=== PATIENT | female | born 1970 | race Caucasian/White ===

== ENCOUNTER 2017-09-30 08:35 | Inpatient (IN) | payer SELFPAY ==
[~2017-09-30] VITALS: Ht 165.1 cm; Wt 129.1 kg
[~2017-09-30 08:35] MED LIST: CYCL5TAB PO; IBUP800T23 PO; Z.0.NO CURRENT MEDS
[2017-09-30 08:39] VITALS: PULSE 51; RESP 24; TEMP 97.4; O2SAT 98
[2017-09-30] MEDS ORDERED: SODIUM CHLORIDE 0.9% FLUSH 10 ML FLUSH IV FLUSH PRN (09:00)
[2017-09-30] MEDS ORDERED: ONDANSETRON HCL 4 MG/2 ML VIAL IV PUSH ONE (09:00)
[2017-09-30] MEDS ORDERED: MORPHINE SULFATE 2 MG/ML INJ IV PUSH ONE (09:00)
[2017-09-30] MEDS ORDERED: SODIUM CHLOR 0.9% 1000 ML INJ 1,000 ML IV ONE (09:00)
[2017-09-30] MEDS ORDERED: [UNRECOGNIZED DRUG - OTHER] (09:13)
[2017-09-30 09:14] VITALS: BP 111/79; PULSE 50; RESP 16; O2SAT 100
[2017-09-30 09:15] VITALS: O2SAT 100
[2017-09-30] MEDS ORDERED: LORazepam 2 MG/ML VIAL IV PUSH ONE ×2 (09:15→13:45)
[2017-09-30 09:22] LABS: AUTOMATED NEUTROPHIL # 8.2 TH/MM3 (1.8-7.7); BASOPHIL # 0.2 TH/MM3 (0-0.2); BASOPHIL % 1.5 % (0.0-2.0); EOSINOPHIL # 0.1 TH/MM3 (0-0.4); EOSINOPHIL % 1.1 % (0.0-4.0); HEMATOCRIT 46.1 % (35.0-46.0); HEMOGLOBIN 15.7 GM/DL (11.6-15.3); LYMPH % 17.2 % (9.0-44.0); LYMPHOCYTE # 1.9 TH/MM3 (1.0-4.8); MEAN CELL VOLUME 95.3 FL (80.0-100.0); MEAN CORPUSCULAR HEMOGLOBIN 32.5 PG (27.0-34.0); MEAN CORPUSCULAR HGB CONC 34.2 % (32.0-36.0); MEAN PLATELET VOLUME 10.2 FL (7.0-11.0); MONO % 4.3 % (0.0-8.0); MONOCYTE # 0.5 TH/MM3 (0-0.9); NEUT % 75.9 % (16.0-70.0); PLATELET COUNT 258 TH/MM3 (150-450); RED BLOOD COUNT 4.83 MIL/MM3 (4.00-5.30); RED CELL DISTRIBUTION WIDTH 12.6 % (11.6-17.2); WHITE BLOOD COUNT 10.9 TH/MM3 (4.0-11.0)
--- NOTE | 2017-09-30 09:23 | PD ---
HPI Chief Complaint: GI Complaint Time Seen by Provider: 08:53 Travel History International Travel<30 days: No Contact w/Intl Traveler<30days: No Traveled to known affect area: No History of Present Illness HPI Ms. Valenzuela is a 47 year old female who presents with a 3 day history of nausea, vomiting, and abdominal pain. The patient initially attributed her symptoms to food poisoning but they have progressively gotten worse. She rates her pain 10/10 and describes it as constant ache with intermittent sharp pains. The pain is diffuse but more pronounced in the periumbilical area where there is "something sticking out." She has had this protrusion for at least two years but never had similar episodes in the past. She has been unable to tolerate PO intake due to nausea and vomiting. Vomit is non-bloody. She has not had a bowel movement in 3 days. Denies history of constipation. She has a history of section 25 years ago. Denies any lightheadedness, dizziness, weakness, shortness of breath. Modifying Factors: None Associated Signs & Symptoms: Periumbilical abdominal pain, nausea and vomiting for 3 days, constipation Risk Factors: None PFSH Past Medical History ?: Not LMP: [place] : 2 Para: 2 Past Surgical History Appendectomy: Yes (2005) Section: Yes (X2) Gynecologic Surgery: Yes (NORPLANT PLACED IN LT UPPER ARM 2000) Social History Alcohol Use: No Tobacco Use: No Allergies-Medications (Allergen,Severity, Reaction): Coded Allergies: codeine (Unverified Allergy, Severe, AIRWAY CLOSES, 09/30/17) penicillin G (Unverified Allergy, Severe, AIRWAY CLOSES, 09/30/17) Reported Meds & Prescriptions Reported Meds & Active Scripts Active Reported [pratol] Review of Systems Except as stated in HPI: all other systems reviewed are Neg Physical Exam Narrative GENERAL: well-developed, obese female who is very anxious, in moderate distress. Awake and oriented 3. SKIN: Warm and dry. HEAD: Atraumatic. Normocephalic. EYES: No scleral icterus. No injection or drainage. NECK: Supple, trachea midline. No JVD or lymphadenopathy. CARDIOVASCULAR: Regular rate and rhythm without murmurs, gallops, or rubs. RESPIRATORY: Breath sounds equal bilaterally. No accessory muscle use. GASTROINTESTINAL: Abdomen soft, obese, protuberant. Tender to palpation in the periumbilical area where there is a ventral hernia with palpable. Hepatic and splenic margins not palpable. MUSCULOSKELETAL: No cyanosis, or edema. BACK: Nontender without obvious deformity. No CVA tenderness. NEUROLOGICAL: Awake and alert. No obvious cranial nerve deficits. Motor grossly within normal limits. Normal speech. PSYCHIATRIC: Appropriate mood and affect; insight and judgment normal. Data Data Last Documented VS Vital Signs Date Time Temp Pulse Resp B/P (MAP) Pulse Ox O2 Delivery O2 Flow Rate FiO2 09/30/17 09:15 100 Room Air 09/30/17 09:14 50 16 09/30/17 08:39 97.4 Orders Orders Complete Blood Count With Diff (09/30/17 08:53) Comprehensive Metabolic Panel (09/30/17 08:53) Lipase (09/30/17 08:53) Urinalysis - C+S If Indicated (09/30/17 08:53) Iv Access Insert/Monitor (09/30/17 08:53) Ecg Monitoring (09/30/17 08:53) Oximetry (09/30/17 08:53) Sodium Chloride 0.9% Flush (Ns Flush) (09/30/17 09:00) Ed Urine Pregnancytest Poc (09/30/17 08:53) Ct Abd/Pel W Iv Contrast(Rout) (09/30/17 08:56) Ondansetron Inj (Zofran Inj) (09/30/17 09:00) Morphine Inj (Morphine Inj) (09/30/17 09:00) Sodium Chlor 0.9% 1000 Ml Inj (Ns 1000 M (09/30/17 09:00) Lorazepam Inj (Ativan Inj) (09/30/17 09:15) Iohexol 350 Inj (Omnipaque 350 Inj) (09/30/17 10:25) Admit Order (Ed Use Only) (09/30/17 11:18) Labs Laboratory Tests Test 09/30/17 09:01 09/30/17 09:45 09/30/17 09:56 White Blood Count 10.9 TH/MM3 Red Blood Count 4.83 MIL/MM3 Hemoglobin 15.7 GM/DL Hematocrit 46.1 % Mean Corpuscular Volume 95.3 FL Mean Corpuscular Hemoglobin 32.5 PG Mean Corpuscular Hemoglobin Concent 34.2 % Red Cell Distribution Width 12.6 % Platelet Count 258 TH/MM3 Mean Platelet Volume 10.2 FL Neutrophils (%) (Auto) 75.9 % Lymphocytes (%) (Auto) 17.2 % Monocytes (%) (Auto) 4.3 % Eosinophils (%) (Auto) 1.1 % Basophils (%) (Auto) 1.5 % Neutrophils # (Auto) 8.2 TH/MM3 Lymphocytes # (Auto) 1.9 TH/MM3 Monocytes # (Auto) 0.5 TH/MM3 Eosinophils # (Auto) 0.1 TH/MM3 Basophils # (Auto) 0.2 TH/MM3 CBC Comment DIFF FINAL Differential Comment Blood Urea Nitrogen 17 MG/DL Creatinine 1.00 MG/DL Random Glucose 92 MG/DL Total Protein 6.3 GM/DL Albumin 2.9 GM/DL Calcium Level 8.1 MG/DL Alkaline Phosphatase 85 U/L Aspartate Amino Transf (AST/SGOT) 19 U/L Alanine Aminotransferase (ALT/SGPT) 21 U/L Total Bilirubin 0.9 MG/DL Sodium Level 139 MEQ/L Potassium Level 3.6 MEQ/L Chloride Level 107 MEQ/L Carbon Dioxide Level 24.9 MEQ/L Anion Gap 7 MEQ/L Estimat Glomerular Filtration Rate 59 ML/MIN Lipase 95 U/L Urine Collection Type CATH Urine Color YELLOW Urine Turbidity CLEAR Urine pH 7.0 Urine Specific [place] 1.023 Urine Protein NEG mg/dL Urine Glucose (UA) NEG mg/dL Urine Ketones TRACE mg/dL Urine Occult Blood NEG Urine Nitrite NEG Urine Bilirubin NEG Urine Leukocyte Esterase NEG Urine WBC 0-2 /hpf Urine Squamous Epithelial Cells 0-5 /hpf Microscopic Urinalysis Comment CATH-CULT NOT IND Urine Collection Time 09:[address] [facility] Medical Decision Making Medical Screen Exam Complete: Yes Emergency Medical Condition: Yes Medical Record Reviewed: Yes Interpretation(s) Laboratory Tests Test 09/30/17 09:01 09/30/17 09:45 09/30/17 09:56 Hemoglobin 15.7 GM/DL (11.6-15.3) Hematocrit 46.1 % (35.0-46.0) Neutrophils (%) (Auto) 75.9 % (16.0-70.0) Neutrophils # (Auto) 8.2 TH/MM3 (1.8-7.7) Total Protein 6.3 GM/DL (6.4-8.2) Albumin 2.9 GM/DL (3.4-5.0) Calcium Level 8.1 MG/DL (8.5-10.1) Estimat Glomerular Filtration Rate 59 ML/MIN (>89) Urine Ketones TRACE mg/dL (NEG) Last 24 hours Impressions Abdomen/Pelvis CT 09/30/17 0856 Signed Impressions: Service Date/Time: Saturday, September 30, 2017 10:16 - CONCLUSION: 1. No definite abnormality is identified is identified to explain the clinical symptoms. There is a fat containing umbilical hernia measuring up to 8.8 cm. 2. Nonacute findings include mild splenomegaly and sigmoid diverticulosis. Diego Mcdonnell MD Differential Diagnosis Abdominal pain, nausea and vomiting, constipation: Bowel Obstruction versus incarcerated hernia versus mass versus other acute intra-abdominal processes Narrative Course Lab work did not show significant signs of dehydration or significant metabolic issues. Her CAT scan shows a umbilical fat-containing hernia, no signs of bowel obstruction or strangulation. Patient was placed in Trendelenburg position, ice pack lays on the umbilical region, and on reevaluation at 10:30 AM , I was able to reduce the hernia to some degree. There is still a palpable periumbilical area hernia but it is reducible. However, patient states that the only thing that is relieving the pain is the morphine and Ativan and she is still very nauseous. At this point, my plan would be to admit her as an observation for pain control. In addition, it may be a good idea to obtain surgical consult as well for this issue. Diagnosis Primary Impression: Abdominal pain Additional Impression: Umbilical hernia without obstruction or gangrene Admitting Information Admitting Physician Requests: Admit Juan J Sun MD Sep 30, 2017 09:23
[2017-09-30 10:01] LABS: CHLORIDE 107 MEQ/L (98-107); SODIUM (NA) 139 MEQ/L (136-145)
[2017-09-30 10:05] LABS: CALCIUM 8.1 MG/DL (8.5-10.1)
[2017-09-30 10:06] LABS: ALBUMIN 2.9 GM/DL (3.4-5.0); BICARBONATE 24.9 MEQ/L (21.0-32.0); BLOOD UREA NITROGEN 17 MG/DL (7-18); GLUCOSE,RANDOM 92 MG/DL (74-106); LIPASE 95 U/L (73-393)
[2017-09-30 10:09] LABS: ALT (GPT) 21 U/L (10-53); AST (GOT) 19 U/L (15-37); GLOMERULAR FILTRATION RATE 59 ML/MIN (>89)
[2017-09-30 10:10] LABS: TOTAL BILIRUBIN ADULT 0.9 MG/DL (0.2-1.0); TOTAL PROTEIN 6.3 GM/DL (6.4-8.2)
[2017-09-30 10:11] LABS: ALKALINE PHOSPHATASE 85 U/L (45-117)
[2017-09-30 10:18] LABS: BILIRUBIN, URINE NEG (NEG); BLOOD, URINE NEG (NEG); GLUCOSE,URINE NEG (NEG); KETONE, URINE TRACE mg/dL (NEG); NITRITE,URINE NEG (NEG); URINE LEUKOCYTE ESTERASE NEG (NEG)
[2017-09-30] MEDS ORDERED: IOHEXOL 350 MG/ML 10 ML VIAL (for RAD DIAG) IVCONTRAST ONE (10:25)
[2017-09-30 10:26] LABS: SQUAMOUS EPITHELIAL CELL URINE 0-5 /hpf (0-5); URINE COLOR YELLOW (YELLW/STRAW); WBC, URINE 0-2 /hpf (0-5)
--- NOTE | 2017-09-30 10:38 | RADRPT ---
EXAM DATE/TIME: 09/30/2017 10:16 [facility] COMPARISON: No previous studies available for comparison. INDICATIONS : Diffuse abdominal pain, worse periumbilical. Nausea, vomiting and constipation x 3 days. IV CONTRAST: 85 cc Omnipaque 350 (iohexol) IV ORAL CONTRAST: No oral contrast ingested. RADIATION DOSE: 22.23 CTDIvol (mGy) MEDICAL HISTORY : None SURGICAL HISTORY : Appendectomy. section. ENCOUNTER: Initial ACUITY: 3 days PAIN SCALE: 10/10 LOCATION: Diffuse abdomen. TECHNIQUE: Volumetric scanning of the abdomen and pelvis was performed. Using automated exposure control and ad justment of the mA and/or kV according to patient size, radiation dose was kept as low as reasonably achievable to obtain optimal diagnostic quality images. DICOM format image data is available electro nically for review and comparison. FINDINGS: LOWER LUNGS: The visualized lower lungs are clear. LIVER: Homogeneous density without lesion. There is no dilation of the biliary tree. No calcified gallston es. SPLEEN: Mildly enlarged measuring 13.4 cm. PANCREAS: Within normal limits. KIDNEYS: Normal in size and shape. There is no mass, stone or hydronephrosis. ADRENAL GLANDS: Within normal limits. VASCULAR: There is no aortic aneurysm. BOWEL/MESENTERY: The stomach, small bowel, and colon demonstrate no acute abnormality. There is no free intraperitone al air or fluid. There is sigmoid diverticulosis. Clips at the base of the cecum are related to prior appendectomy. ABDOMINAL WALL: There is a fat containing umbilical hernia. It measures up to 8.8 cm. RETROPERITONEUM: There is no lymphadenopathy. BLADDER: No wall thickening or mass. REPRODUCTIVE: Within normal limits. INGUINAL: There is no lymphadenopathy or hernia. MUSCULOSKELETAL: There are mild degenerative changes of the lumbar spine. CONCLUSION: 1. No definite abnormality is identified is identified to explain the clinical symptoms. There is a f at containing umbilical hernia measuring up to 8.8 cm. 2. Nonacute findings include mild splenomegaly and sigmoid diverticulosis. Diego Mcdonnell MD on September 30, 2017 at 10:32 Board Certified Radiologist. This report was verified electronically.
[2017-09-30 12:13] VITALS: BP 134/99; PULSE 62; RESP 18; O2SAT 98
[2017-09-30 12:30] VITALS: BP 145/73; PULSE 52; RESP 18; TEMP 99.5; O2SAT 99
[2017-09-30] MEDS ORDERED: DIATRIZOATE MEGLUM/DIATRIZOATE SOD 120 ML BTL (for RAD DIAG) RECTAL ONE (14:53)
--- NOTE | 2017-09-30 15:01 | HHI.HP ---
[facility] No Primary Care Physician Admission Diagnosis abdominal pain/pain control/fat-containing umbilical hernia Diagnoses: (1) Abdominal pain Diagnosis: Principal (2) Umbilical hernia without obstruction or gangrene Diagnosis: Principal Chief Complaint: Abdominal pain Travel History International Travel<30 Days: No Contact w/Intl Traveler <30 Da: No Traveled to Known Affected Are: No History of Present Illness Written by Marques Ratliff, acting as scribe for Dr. Barrow on 09/30/17 at 14 :47. 47-year-old female with known history of chronic pain, fibromyalgia, bipolar who presented to hospital because of abdominal pain. Patient was in her normal state of health until 3 days ago when she started having abdominal pain which she states was so severe that all he was doing was laying around writhing in pain, yelling out in pain area she states that she has not been able to find any relief with her pain medication/Tylenol/Lortab at home. So her girlfriend brought her to the hospital for evaluation. Patient indicates that she has never had this type of pain before. She indicates that she has had associated nausea and vomiting where she vomited "40 times yesterday". She states that she has not ate anything in 3 days. Her last bowel movement was 2 days ago. She usually has 2 bowel movements daily. She denied any fever, chills, dysuria , hematuria. She states that she has not vomited today but she is nauseous. Patient states that she has not tried to eat anything today. Patient had workup done in the emergency department in it was rather nonsignificant. Laboratory studies are rather unremarkable, no significant indication of dehydration, no laboratory findings indicate any intra-abdominal etiology. CT scan was done which does show a fat-containing umbilical hernia measuring 8.8 cm w/ no reports of any strangulated or necrotic or ischemic or inflamed bowel. This was reduced by the ER physician and unable to palpate on exam now. It was recommended by the ER physician that the patient be admitted for further evaluation and management. After arriving to the floor, Patient's care was discussed with floor nurse nurse outside the room who reported that he would hear a low volume of moaning and groaning from the patient's room as he stood outside of it and then stated that the patient would then began to yell and scream upon entering the room. Upon Dr. Barrow's to the patient's room, there was no yelling, screaming outside the room. Once entering the room patient started yelling, screaming, jumping around in bed, writhing, stating that she cannot get comfortable because of the pain. Once leaving the room, patient no longer was yelling, screaming or writhing in pain. At one point the patient even said to "hug me" because she was in pain. She repeatedly stated to "please make me comfortable. " Patient does admit to being diagnosed with bipolar disorder as a young adult. Review of Systems Gastrointestinal: COMPLAINS OF: Abdominal pain, Constipation, Nausea, Vomiting Except as stated in HPI: all other systems reviewed are Neg Past Family Social History Past Medical History Chronic pain Fibromyalgia Bipolar disorder Past Surgical History 2 in 1982 and 1988 Appendectomy Norplant placed in left upper extremity Reported Medications Reported Meds & Active Scripts Active Reported [pratol] Allergies: Coded Allergies: codeine (Unverified Allergy, Severe, AIRWAY CLOSES, 09/30/17) penicillin G (Unverified Allergy, Severe, AIRWAY CLOSES, 09/30/17) Family History Reviewed is significant for fibromyalgia Social History Patient denies any tobacco or illicit drugs. Patient states that she drinks 1- 2 drinks per month. Physical Exam Vital Signs Vital Signs Date Time Temp Pulse Resp B/P (MAP) Pulse Ox O2 Delivery O2 Flow Rate FiO2 09/30/17 12:30 99.5 52 18 145/73 (97) 99 09/30/17 12:13 09/30/17 12:13 62 18 134/99 (111) 98 Room Air 09/30/17 09:15 100 Room Air 09/30/17 09:14 50 16 111/79 (90) 100 Room Air 09/30/17 08:39 97.4 51 24 98 Physical Exam GENERAL: Well-developed, morbidly obese, BMI 47.4, patient rather malingering, dramatic, writhing in bed, yelling, moaning, asking for hugs. However, when your outside of the room, the patient is not yelling, screaming, rolling in bed. She only does this whenever anyone walk into the room . Alert and orientated HEENT: Head is normocephalic without any lesions or masses noted. Facial features are symmetric. Eyes: Extraocular muscles are intact. Conjunctivae were clear. Oropharyngeal: Pharynx without any erythema edema. Tongue is midline without deviation. Buccal mucosa is moist without any masses or lesions NECK: Supple without any masses. Trachea midline no deviation. No JVD, no bruits are appreciated CARDIAC: Regular rhythm, regular rate. S1/S2 are heard. No murmurs gallops or rubs. LUNGS: Clear to auscultation bilaterally. No wheeze, rhonchi or rales. No use of accessory muscles on inspiration or expiration. ABDOMEN: Abdomen is obese. There is little to no consistent reproducible tenderness when the patient's abdomen is palpated with the stethoscope while simultaneously auscultating which showed normoactive normal pitched bowel sounds in all 4 quadrants. However when palpating deeply in all 4 quadrants with hands, the patient would then wince and state that she would hurt. No focal protruding masses or organomegaly was palpated in the context of an obese abdomen. EXTREMITIES: No edema, pulses are equal bilaterally. No cyanosis or clubbing NEUROLOGY: No facial droop, no slurred speech, no tremors Psychiatry: Mood and affect appear heightened and overdramatic. Laboratory Laboratory Tests Test 09/30/17 09:01 09/30/17 09:45 09/30/17 09:56 White Blood Count 10.9 Red Blood Count 4.83 Hemoglobin 15.7 Hematocrit 46.1 Mean Corpuscular Volume 95.3 Mean Corpuscular Hemoglobin 32.5 Mean Corpuscular Hemoglobin Concent 34.2 Red Cell Distribution Width 12.6 Platelet Count 258 Mean Platelet Volume 10.2 Neutrophils (%) (Auto) 75.9 Lymphocytes (%) (Auto) 17.2 Monocytes (%) (Auto) 4.3 Eosinophils (%) (Auto) 1.1 Basophils (%) (Auto) 1.5 Neutrophils # (Auto) 8.2 Lymphocytes # (Auto) 1.9 Monocytes # (Auto) 0.5 Eosinophils # (Auto) 0.1 Basophils # (Auto) 0.2 CBC Comment DIFF FINAL Differential Comment Blood Urea Nitrogen 17 Creatinine 1.00 Random Glucose 92 Total Protein 6.3 Albumin 2.9 Calcium Level 8.1 Alkaline Phosphatase 85 Aspartate Amino Transf (AST/SGOT) 19 Alanine Aminotransferase (ALT/SGPT) 21 Total Bilirubin 0.9 Sodium Level 139 Potassium Level 3.6 Chloride Level 107 Carbon Dioxide Level 24.9 Anion Gap 7 Estimat Glomerular Filtration Rate 59 Lipase 95 Urine Collection Type CATH Urine Color YELLOW Urine Turbidity CLEAR Urine pH 7.0 Urine Specific [place] 1.023 Urine Protein NEG Urine Glucose (UA) NEG Urine Ketones TRACE Urine Occult Blood NEG Urine Nitrite NEG Urine Bilirubin NEG Urine Leukocyte Esterase NEG Urine WBC 0-2 Urine Squamous Epithelial Cells 0-5 Microscopic Urinalysis Comment CATH-CULT NOT IND Urine Collection Time 09:56 Result Diagram: 09/30/17 0901 09/30/17 0945 Imaging Last Impressions Abdomen/Pelvis CT 09/30/17 0856 Signed Impressions: Service Date/Time: Thursday, September 30, 2017 10:16 - CONCLUSION: 1. No definite abnormality is identified is identified to explain the clinical symptoms. There is a fat containing umbilical hernia measuring up to 8.8 cm. 2. Nonacute findings include mild splenomegaly and sigmoid diverticulosis. Diego Mcdonnell MD [place] VTE Risk Assessment Caprini VTE Risk Assessment: Mod/High Risk (score >= 2) Caprini Risk Assessment Model Point Value = 1 Point Value = 2 Point Value = 3 Point Value = 5 Age 41-60 Minor surgery BMI > 25 kg/m2 Swollen legs Varicose veins or History of unexplained or recurrent spontaneous Oral contraceptives or hormone replacement Sepsis (< 1 month) Serious lung disease, including pneumonia (< 1 month) Abnormal pulmonary function Acute myocardial infarction Congestive heart failure (< 1 month) History of inflammatory bowel disease Medical patient at bed rest Age 61-74 Arthroscopic surgery Major open surgery (> 45 min) Laparoscopic surgery (> 45 min) Malignancy Confined to bed (> 72 hours) Immobilizing plaster cast Central venous access Age >= 75 History of VTE Family history of VTE Factor V Leiden Prothrombin [id number] Lupus anticoagulant Anticardiolipin antibodies Elevated serum homocysteine Heparin-induced thrombocytopenia Other congenital or acquired thrombophilia Stroke (< 1 month) Elective arthroplasty Hip, pelvis, or leg fracture Acute spinal cord injury (< 1 month) Prophylaxis Regimen Total Risk Factor Score Risk Level Prophylaxis Regimen 0-1 Low Early ambulation 2 Moderate Order ONE of the following: *Sequential Compression Device (SCD) *Heparin 5000 units SQ BID 3-4 Higher Order ONE of the following medications: *Heparin 5000 units SQ TID *Enoxaparin/Lovenox 40 mg SQ daily (WT < 150 kg, CrCl > 30 mL/min) *Enoxaparin/Lovenox 30 mg SQ daily (WT < 150 kg, CrCl > 10-29 mL/min) *Enoxaparin/Lovenox 30 mg SQ BID (WT < 150 kg, CrCl > 30 mL/min) AND/OR *Sequential Compression Device (SCD) 5 or more Highest Order ONE of the following medications: *Heparin 5000 units SQ TID (Preferred with Epidurals) *Enoxaparin/Lovenox 40 mg SQ daily (WT < 150 kg, CrCl > 30 mL/min) *Enoxaparin/Lovenox 30 mg SQ daily (WT < 150 kg, CrCl > 10-29 mL/min) *Enoxaparin/Lovenox 30 mg SQ BID (WT < 150 kg, CrCl > 30 mL/min) AND *Sequential Compression Device (SCD) Assessment and Plan Assessment and Plan Nausea, vomiting, abdominal pain, intractable - Laboratory studies do not indicate any signs of dehydration, electrolyte imbalance, any intra-abdominal etiology of her pain - CT scan does show 8.8 cm fat-containing hernia which was reduced by the ER physician and not palpable on examination - We'll obtain Gastrografin enema due to constipation, increased stool noted on CT scan which was independently reviewed by Dr. Barrow - Consider consultation with GI physician if pain uncontrolled - Advance diet as tolerated - Antiemetics as needed, pain control - It was discussed with the patient the need for her to tolerate food, patient states that she will try. - Patient indicates that she can only use IV pain medication because she will vomit all pill medication - Consider malingering, medication seeking if workup remains negative Severe anxiety - Improved with 2 mg of Ativan given IV -We'll consider psychiatric evaluation of the patient's mood does not remain stable - Ativan when necessary anxiety DVT prevention - Sequential compression devices Patient underwent HIDA scan which was unremarkable and a Gastrografin enema which resulted in good bowel evacuation at least clinically. The patient's pain had completely subsided and she stated that she felt good. She tolerated her by mouth intake well after the procedure. Patient felt good about going home and was willing to go home. Vital signs remained stable with no concerning abnormal lab work otherwise. General surgery also saw the patient and saw no need for any immediate surgical intervention. Patient has met maximal benefit from hospitalization and is clinically stable for discharge. Physician Certification 2 Midnight Certification Type: Admission for Inpatient Services Order for Inpatient Services The services are ordered in accordance with Medicare regulations or non- Medicare payer requirements, as applicable. In the case of services not specified as inpatient-only, they are appropriately provided as inpatient services in accordance with the 2-midnight benchmark. Estimated LOS (days): 2 days is the estimated time the patient will need to remain in the hospital, assuming treatment plan goals are met and no additional complications. Post-Hospital Plan: Not yet determined Problem Qualifiers (1) Abdominal pain: Qualified Codes: R10.9 - Unspecified abdominal pain Marques Ratliff Sep 30, 2017 15:01 Javier Barrow MD Oct 01, 2017 08:53
[2017-09-30 17:00] VITALS: BP 102/61; PULSE 56; RESP 16; TEMP 97.2; O2SAT 92
--- NOTE | 2017-09-30 17:09 | RADRPT ---
EXAM DATE/TIME: 09/30/2017 15:17 [facility] COMPARISON: CT ABDOMEN & PELVIS W CONTRAST, September 30, 2017, 10:16. BILIARY SCAN (HIDA), September 30, 2017, 15 :17. INDICATIONS : Abdominal pain, nausea and vomiting. DOSE: 4.2 mCi Tc99m Mebrofenin IV MEDICAL HISTORY : None SURGICAL HISTORY : section. Inguinal hernia repair. ENCOUNTER: Initial ACUITY: 2 days PAIN SCALE: 10/10 LOCATION: Right upper quadrant TECHNIQUE: Following the intravenous administration of radiotracer, dynamic sequential images were performed wit h continuous acquisition. FINDINGS: HEPATIC KINETICS: There is prompt uptake of radiotracer in the liver. No focal defects are seen. There is normal rate of washout from the hepatic parenchyma. BILIARY CLEARANCE: Activity is first seen in the extrahepatic biliary system at 15inutes. There is normal excretion int o the small bowel. GALLBLADDER: Activity is first seen in the gallbladder at 30 minutes. Common bile duct kinetics are normal and th ere is no evidence of biliary obstruction. BILIARY ENTRIC REFLUX: None observed. CONCLUSION: There is normal filling of the gallbladder excluding cystic duct obstruction. Diego Mcdonnell MD on September 30, 2017 at 17:03 Board Certified Radiologist. This report was verified electronically.
[2017-09-30] MEDS ORDERED: ONDANSETRON HCL 4 MG/2 ML VIAL IV PUSH PRN (17:15)
--- NOTE | 2017-09-30 17:57 | PD.CONS ---
cc: Aleks Ko MD [facility] Service General Surgery Consult Requested By Dr. Barrow Reason for Consult Abdominal pain; umbilical hernia visualized on CT scan Primary Care Physician No Primary Care Physician History of Present Illness This is a 47-year-old female with a past medical history of fibromyalgia, bipolar and chronic pain. The patient developed acute onset of abdominal pain 3 days ago. The patient has not had anything to 3 days. The patient's last bowel movement was 2 days ago. The patient has reported that she was lightheaded with little appetite. The patient had a small umbilical hernia which was easily reducible in the emergency department per report. Laboratory workup the patient is essentially normal. A CT of the abdomen and pelvis was obtained which is a fat-containing umbilical hernia. Patient has never had an issue with an umbilical hernia before. The patient had a Gastrografin enema for constipation and had success with that. A HIDA scan was obtained which was normal. A General Surgery consultation is requested for evaluation of umbilical hernia. Review of Systems Constitutional: COMPLAINS OF: Fatigue, Change in appetite, DENIES: Chills Endocrine: DENIES: Polydipsia, Polyuria, Polyphagia Eyes: DENIES: Diplopia Ears, nose, mouth, throat: DENIES: Hearing loss Respiratory: DENIES: Cough Cardiovascular: DENIES: Chest pain Gastrointestinal: COMPLAINS OF: Abdominal pain, Constipation, DENIES: Nausea, Vomiting Genitourinary: DENIES: Urinary frequency Musculoskeletal: DENIES: Joint pain Integumentary: DENIES: Abnormal pigmentation Hematologic/lymphatic: DENIES: Bruising Immunologic/allergic: DENIES: Eczema Neurologic: DENIES: Headache, Localized weakness Psychiatric: DENIES: Mood changes, Depression, Hallucinations Past Family Social History Past Medical History Fibromyalgia Bipolar Chronic pain Past Surgical History section 2 Laparoscopic appendectomy in [place] Allergies: Coded Allergies: codeine (Unverified Allergy, Severe, AIRWAY [employer]OSES, 09/30/17) penicillin G (Unverified Allergy, Severe, AIRWAY CLOSES, 09/30/17) Active Ordered Medications Current Medications Medications (Trade) Dose Ordered Sig/Precious Route Start Time Stop Time Status Last Admin (NS Flush) 2 ml UNSCH PRN IV FLUSH 09/30/17 09:00 (Zofran Inj) 4 mg Q6HR PRN IV PUSH 09/30/17 17:15 Family History Noncontributory Social History Denies tobacco use Occasional EtOH use; not daily Denies illicit drug use 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 Physical Exam Vital Signs Vital Signs Date Time Temp Pulse Resp B/P (MAP) Pulse Ox O2 Delivery O2 Flow Rate FiO2 09/30/17 17:00 97.2 56 16 102/61 (75) 92 09/30/17 12:30 99.5 52 18 145/73 (97) 99 09/30/17 12:13 09/30/17 12:13 62 18 134/99 (111) 98 Room Air 09/30/17 09:15 100 Room Air 09/30/17 09:14 50 16 111/79 (90) 100 Room Air 09/30/17 08:39 97.4 51 24 98 Physical Exam GENERAL: Pleasant 47 year old female resting in bed in no acute distress. SKIN: Warm and dry. HEAD: Atraumatic. Normocephalic. EYES: Pupils equal and round. No scleral icterus. No injection or drainage. ENT: No nasal bleeding or discharge. Mucous membranes pink and moist. NECK: Trachea midline. CARDIOVASCULAR: Regular rate and rhythm. RESPIRATORY: No accessory muscle use. Clear to auscultation. Breath sounds equal bilaterally. GASTROINTESTINAL: Abdomen soft, nondistended, obese abdomen; no palatable umbilical hernia on exam; patient is very minimally tender around umbilicus MUSCULOSKELETAL: Extremities without clubbing, cyanosis, or edema. No obvious deformities. NEUROLOGICAL: Awake and alert. No obvious cranial nerve deficits. Motor grossly within normal limits. Five out of 5 muscle strength in the arms and legs. Normal speech. PSYCHIATRIC: Appropriate mood and affect; insight and judgment normal. Laboratory Laboratory Tests Test 09/30/17 09:01 09/30/17 09:45 09/30/17 09:56 White Blood Count 10.9 Red Blood Count 4.83 Hemoglobin 15.7 Hematocrit 46.1 Mean Corpuscular Volume 95.3 Mean Corpuscular Hemoglobin 32.5 Mean Corpuscular Hemoglobin Concent 34.2 Red Cell Distribution Width 12.6 Platelet Count 258 Mean Platelet Volume 10.2 Neutrophils (%) (Auto) 75.9 Lymphocytes (%) (Auto) 17.2 Monocytes (%) (Auto) 4.3 Eosinophils (%) (Auto) 1.1 Basophils (%) (Auto) 1.5 Neutrophils # (Auto) 8.2 Lymphocytes # (Auto) 1.9 Monocytes # (Auto) 0.5 Eosinophils # (Auto) 0.1 Basophils # (Auto) 0.2 CBC Comment DIFF FINAL Differential Comment Blood Urea Nitrogen 17 Creatinine 1.00 Random Glucose 92 Total Protein 6.3 Albumin 2.9 Calcium Level 8.1 Alkaline Phosphatase 85 Aspartate Amino Transf (AST/SGOT) 19 Alanine Aminotransferase (ALT/SGPT) 21 Total Bilirubin 0.9 Sodium Level 139 Potassium Level 3.6 Chloride Level 107 Carbon Dioxide Level 24.9 Anion Gap 7 Estimat Glomerular Filtration Rate 59 Lipase 95 Urine Collection Type CATH Urine Color YELLOW Urine Turbidity CLEAR Urine pH 7.0 Urine Specific [place] 1.023 Urine Protein NEG Urine Glucose (UA) NEG Urine Ketones TRACE Urine Occult Blood NEG Urine Nitrite NEG Urine Bilirubin NEG Urine Leukocyte Esterase NEG Urine WBC 0-2 Urine Squamous Epithelial Cells 0-5 Microscopic Urinalysis Comment CATH-CULT NOT IND Urine Collection Time 09:56 Result Diagram: 09/30/17 0901 09/30/17 0945 Imaging Last 48 hours Impressions Abdomen/Pelvis CT 09/30/17 0856 Signed Impressions: Service Date/Time: Saturday, September 30, 2017 10:16 - CONCLUSION: 1. No definite abnormality is identified is identified to explain the clinical symptoms. There is a fat containing umbilical hernia measuring up to 8.8 cm. 2. Nonacute findings include mild splenomegaly and sigmoid diverticulosis. Diego Mcdonnell MD Hepatobiliary Scan Nuclear Medicine 09/30/17 0000 Signed Impressions: Service Date/Time: Saturday, September 30, 2017 15:17 - CONCLUSION: There is normal filling of the gallbladder excluding cystic duct obstruction. Diego Mcdonnell MD Assessment and Plan Assessment and Plan 47-year-old female with abdominal pain; CT images reveal fat-containing umbilical hernia -Diet as tolerated -At this time no surgical intervention warranted -Patient can follow-up in the office should she have any problems with her umbilical hernia -This patient is cleared for discharge once cleared by the Medicine Team -Thank you for this consult Discussed Condition With Dr. Stefani Melgar,Brina B. GENERAL [employer]ILITY MAINTENANCE REPAIRER Sep 30, 2017 17:57
[2017-09-30] MEDS ORDERED: MIRA3350 PO (18:38)
--- NOTE | 2017-09-30 18:39 | HHI.DCPOC ---
Discharge Care Plan Diagnosis: (1) Abdominal pain (2) Umbilical hernia without obstruction or gangrene Goals to Promote Your Health * To prevent worsening of your condition and complications * To maintain your health at the optimal level Directions to Meet Your Goals Take your medications as prescribed Follow your dietary instruction Follow activity as directed Keep your appointments as scheduled Take your immunizations and boosters as scheduled If your symptoms worsen call your PCP, if no PCP go to Urgent Care Center or Emergency Room Smoking is Dangerous to Your Health. Avoid second hand smoke Call the 24-hour hour crisis hotline for domestic abuse at [facility] Sep 30, 2017 18:39
--- NOTE | 2017-09-30 18:39 | HHI.DCPOC ---
Discharge Care Plan Diagnosis: (1) Abdominal pain (2) Umbilical hernia without obstruction or gangrene Goals to Promote Your Health * To prevent worsening of your condition and complications * To maintain your health at the optimal level Directions to Meet Your Goals Take your medications as prescribed Follow your dietary instruction Follow activity as directed Keep your appointments as scheduled Take your immunizations and boosters as scheduled If your symptoms worsen call your PCP, if no PCP go to Urgent Care Center or Emergency Room Smoking is Dangerous to Your Health. Avoid second hand smoke Call the 24-hour hour crisis hotline for domestic abuse at [facility] Sep 30, 2017 18:39
--- NOTE | 2017-09-30 18:39 | HHI.DCPOC ---
Discharge Care Plan Diagnosis: (1) Abdominal pain (2) Umbilical hernia without obstruction or gangrene Goals to Promote Your Health * To prevent worsening of your condition and complications * To maintain your health at the optimal level Directions to Meet Your Goals Take your medications as prescribed Follow your dietary instruction Follow activity as directed Keep your appointments as scheduled Take your immunizations and boosters as scheduled If your symptoms worsen call your PCP, if no PCP go to Urgent Care Center or Emergency Room Smoking is Dangerous to Your Health. Avoid second hand smoke Call the 24-hour hour crisis hotline for domestic abuse at [facility] Sep 30, 2017 18:39
== END 2017-09-30 18:59 | disposition home or self-care (01) | DRG 394 ==
LOC: PHED 08:35 → PHEDA 11:19 → OBSVTOIN 11:35 → PH3A 12:13
PROVIDERS: ADMIT Hospitalist; ATTEND Hospitalist
DX: K42.9 Umbilical hernia without obstruction or gangrene (principal); Z68.42 Body mass index [BMI] 45.0-49.9, adult; F31.9 Bipolar disorder, unspecified; K59.00 Constipation, unspecified; R11.2 Nausea with vomiting, unspecified; M79.7 Fibromyalgia; G89.29 Other chronic pain; E66.01 Morbid (severe) obesity due to excess calories; K57.30 Diverticulosis of large intestine without perforation or abscess without bleeding
CPT/HCPCS: 74177; 74270; 78226; 80053; 81001; 83690; 84703; 85025; 96361; 96374; 96375; A9537; J2060; J2270; J2405; J7030; Q9963; Q9967